=== PATIENT | male | born 1955 | race Caucasian/White ===

== ENCOUNTER 2025-05-30 20:53 | Emergency (ER) | payer BC, OTHER ==
[~2025-05-30] VITALS: Ht 172.7 cm; Wt 72.6 kg
[2025-05-30 21:52] LABS: APPEARANCE,URINE CLOUDY (CLEAR); BLOOD, URINE NEGATIVE Ery/uL (NEGATIVE); LEUKOCYTE ESTERASE ,URINE NEGATIVE (NEGATIVE); NITRITE, URINE NEGATIVE (NEGATIVE); UGLUCOSE NEGATIVE (NEGATIVE)
[2025-05-30 21:52] LABS: PLATELET COUNT (AUTO) 184 K/uL (150-450); RED BLOOD CELL COUNT(AUTO) 4.32 MIL/uL (4.5-6.0); RED CELL DISTRIBUTION WIDTH 12.9 % (11.5-15.0); WHITE BLOOD COUNT (AUTO) 9.0 K/uL (4.3-11.0)
[2025-05-30 21:57] LABS: CALCIUM, SERUM 10.5 mg/dL (8.5-10.1); CREATININE 0.9 mg/dL (0.6-1.3); SODIUM SERUM 132.0 mmol/L (136-145); UREA NITROGEN, BLOOD 14.0 mg/dL (7-18)
[2025-05-30 22:01] LABS: INR 1.02 (0.91-1.10)
[2025-05-30 22:02] LABS: URINE AMORPHOUS PHOSPHATES Many /HPF (None Seen)
[2025-05-30 22:03] LABS: ASPARTATE AMINOTRANSFERASE 26.0 U/L (15-37); TOTAL PROTEIN, SERUM 7.4 g/dL (6.4-8.2)
[2025-05-30 22:04] LABS: ADD URINE CULTURE NO; SQUAMOUS EPITHELIAL CELL,UR None Seen /HPF (None Seen)
[2025-05-30] MEDS: ONDANSETRON HCL/PF - ER 4 MG/2 ML VIAL IV ONE (22:30)
[2025-05-30] MEDS: IV NS 0.9% 1,000 ML IV ONE (23:14)
[2025-05-31] MEDS ORDERED: PEG 3350/NA SULF,BICARB,CL/KCL 4,000 ML BOTTLE ONE (01:25)
[2025-05-31] MEDS: PEG 3350/NA SULF,BICARB,CL/KCL 4,000 ML BOTTLE PO ONE (01:31)
[2025-05-31 01:32] VITALS: BP 142/77; TEMP 98.9; O2SAT 99
== END 2025-05-31 01:33 | disposition home or self-care (01) ==
LOC: ER 20:56
DX: K59.00 Constipation, unspecified (principal); R10.31 Right lower quadrant pain; I10 Essential (primary) hypertension; K21.9 Gastro-esophageal reflux disease without esophagitis; Z88.0 Allergy status to penicillin; R11.0 Nausea; Z88.5 Allergy status to narcotic agent
CPT/HCPCS: 99284; 74176; 96360; 85025; 80048; 87040; 83605; 83690; 80076; 81001; 36415; 85730; J2405; J7030